=== PATIENT | female | born 1995 | race Two or more races ===

== ENCOUNTER 2024-09-05 20:20 | Emergency (ER) | payer OTHER ==
[~2024-09-05] VITALS: Ht 157.5 cm; Wt 60.8 kg
[2024-09-05 22:35] VITALS: BP 110/72; TEMP 98.1
[2024-09-05 22:40] VITALS: O2SAT 100
== END 2024-09-05 22:45 | disposition home or self-care (01) ==
LOC: ER 21:38
DX: Z00.00 Encounter for general adult medical examination without abnormal findings (principal)

== ENCOUNTER 2025-01-05 16:51 | Emergency (ER) | payer OTHER ==
[~2025-01-05] VITALS: Ht 157.5 cm; Wt 59.9 kg
[2025-01-05 18:24] VITALS: BP 118/81; TEMP 98.3; O2SAT 99
== END 2025-01-05 18:56 | disposition home or self-care (01) ==
LOC: ER 16:59
DX: S61.212A Laceration without foreign body of right middle finger without damage to nail, initial encounter (principal); F17.200 Nicotine dependence, unspecified, uncomplicated; W23.0XXA Caught, crushed, jammed, or pinched between moving objects, initial encounter; Y93.89 Activity, other specified; Y92.89 Other specified places as the place of occurrence of the external cause; Y99.8 Other external cause status
CPT/HCPCS: 73140-TC

== ENCOUNTER 2025-01-13 20:01 | Emergency (ER) | payer OTHER ==
[~2025-01-13] VITALS: Ht 157.5 cm; Wt 59.9 kg
[2025-01-13 20:08] VITALS: BP 113/73; TEMP 98.1; O2SAT 99
== END 2025-01-13 20:43 | disposition home or self-care (01) ==
LOC: ER 20:02
DX: S61.223D Laceration with foreign body of left middle finger without damage to nail, subsequent encounter (principal); Z48.00 Encounter for change or removal of nonsurgical wound dressing; X58.XXXD Exposure to other specified factors, subsequent encounter